=== PATIENT | male | born 1945 | race Caucasian/White ===

== ENCOUNTER → 2017-06-20 | Outpatient (CLI) | payer MEDICARE, OTHER ==
[~2017-06-20] MED LIST: ATOR40TA78 PO; CYAN10002 INJ; METO25TA35 PO; OMNIPAQUE 350 MG/ML, 150 ML BOTTLE ONE; WARF5TAB7 PO
== END | disposition home or self-care (01) ==
LOC: CFH 10:38
PROVIDERS: ATTEND Internal Medicine Cardiovascular Disease
DX: I48.92 Unspecified atrial flutter (principal); I48.91 Unspecified atrial fibrillation; J98.11 Atelectasis
CPT/HCPCS: 75572; 82565; Q9967

== ENCOUNTER 2017-06-22 06:03 | Inpatient (IN) | payer MEDICARE, OTHER ==
[2017-06-20 12:59] LABS: HEMATOCRIT 44.3 % (39.2-51.8); HEMOGLOBIN 14.6 g/dL (13.7-18.0); WHITE BLOOD COUNT 4.5 x10^3/uL (3.4-10)
[2017-06-20 13:07] VITALS: BP 147/88
[2017-06-20 13:10] LABS: ASPARTATE AMINO TRANSFERASE 40 U/L (15-37); BLOOD UREA NITROGEN 21 mg/dL (7-18)
[~2017-06-22] VITALS: Ht 190.5 cm; Wt 89.8 kg
[~2017-06-22 06:03] MED LIST changes: -OMNIPAQUE 350 MG/ML, 150 ML BOTTLE ONE
[2017-06-22] MEDS ORDERED: SODIUM CHLORIDE 0.9% 1,000 ML IV SCH (06:23)
[2017-06-22] MEDS ORDERED: SODIUM CHLORIDE 0.9% 1,000 ML IV ONE (06:30)
[2017-06-22] MEDS ORDERED: LIDOCAINE 2%, 20ML ONE (07:43)
[2017-06-22] MEDS ORDERED: ADENOSINE 6 MG/2 ML ONE (07:43)
[2017-06-22] MEDS ORDERED: HEPARIN 1,000 UNITS/ML, 10ML ONE (07:43)
[2017-06-22] MEDS ORDERED: ISOPROTERENOL 0.2MG/ML, 5ML ONE (07:43)
[2017-06-22] MEDS ORDERED: SUCCINYLCHOLINE 20 MG/ML, 10ML ONE (07:49)
[2017-06-22] MEDS ORDERED: ONDANSETRON 2MG/ML, 2ML ONE (07:49)
[2017-06-22] MEDS ORDERED: PROPOFOL 10 MG/ML, 20ML ONE (07:49)
[2017-06-22] MEDS ORDERED: DEXAMETHASONE 4 MG/ML, 1ML ONE (07:49)
[2017-06-22] MEDS ORDERED: ROCURONIUM 10 MG/ML ONE (07:49)
[2017-06-22] MEDS ORDERED: NEOSTIGMINE 1 MG/ML, 10ML ONE (07:49)
[2017-06-22] MEDS ORDERED: CEFAZOLIN 1,000 MG ONE (07:49)
[2017-06-22] MEDS ORDERED: GLYCOPYRROLATE 0.2MG/1ML ONE (07:49)
[2017-06-22] MEDS ORDERED: MIDAZOLAM 1 MG/ML, 5ML ONE (07:50)
[2017-06-22] MEDS ORDERED: FENTANYL PF 100 MCG/2ML ONE (07:50)
[2017-06-22] MEDS ORDERED: ZOLPIDEM 5MG TABLET PO PRN (09:30)
[2017-06-22] MEDS ORDERED: FENTANYL PF 100 MCG/2ML IV PRN (10:00)
[2017-06-22] MEDS ORDERED: ONDANSETRON 2MG/ML, 2ML IVPush PRN (10:00)
[2017-06-22] MEDS ORDERED: OXYcodone 5 MG/5 ML ORAL.SOL UDC PO PRN (10:00)
[2017-06-22] MEDS ORDERED: OXYcodone 5 MG/5 ML ORAL.SOL UDC ONE (10:08)
[2017-06-22] MEDS ORDERED: [UNRECOGNIZED DRUG - REMARK] MC SCH (12:00)
[2017-06-22] MEDS: SOTALOL 80MG TABLET PO SCH (18:00)
[2017-06-22] MEDS ORDERED: WARFARIN 5 MG TABLET PO-COUM SCH (18:00)
[2017-06-22] MEDS ORDERED: METOPROLOL TARTRATE 25 MG TABLET PO SCH (18:00)
[2017-06-22] MEDS ORDERED: SOTALOL 80MG TABLET PO SCH (18:00)
[2017-06-22 18:32] VITALS: BP 110/65
[2017-06-22] MEDS: ATORVASTATIN 20 MG TABLET PO SCH (21:12)
[2017-06-23 02:01] VITALS: BP 102/55
[2017-06-23] MEDS: SOTALOL 80MG TABLET PO SCH ×2 (05:19→12:02)
[2017-06-23 07:25] VITALS: BP 109/57
[2017-06-23] MEDS: CYANOCOBALAMIN 1,000 MCG TABLET PO SCH (08:45)
[2017-06-23] MEDS ORDERED: WARFARIN 5 MG TABLET PO-COUM SCH (09:00)
[2017-06-23 12:53] VITALS: BP 119/69
[2017-06-23] MEDS ORDERED: SODIUM CHLORIDE 0.9% 1,000 ML IV SCH (17:00)
[2017-06-23] MEDS ORDERED: PHYTONADIONE 10 MG/ML, 1ML SQ ONE (17:00)
[2017-06-23 20:21] VITALS: BP 118/69
[2017-06-23] MEDS: ATORVASTATIN 20 MG TABLET PO SCH (21:24)
[2017-06-24 03:04] VITALS: BP 102/58
[2017-06-24] MEDS: CYANOCOBALAMIN 1,000 MCG TABLET PO SCH (09:25)
[2017-06-24 09:44] VITALS: BP 126/77
[2017-06-24 13:29] VITALS: BP 115/71
[2017-06-24 15:20] VITALS: BP 116/73
[2017-06-24 19:48] VITALS: BP 119/71
[2017-06-24] MEDS: ATORVASTATIN 20 MG TABLET PO SCH (19:54)
[2017-06-25 01:41] VITALS: BP 101/50
[2017-06-25 08:13] VITALS: BP 118/78
[2017-06-25] MEDS ORDERED: CEFAZOLIN PMX 1GM/50ML 50 ML IVPB ONE (08:30)
[2017-06-25] MEDS: SODIUM CHLORIDE 0.9% 1,000 ML IV SCH ×2 (09:00→14:46)
[2017-06-25] MEDS: CYANOCOBALAMIN 1,000 MCG TABLET PO SCH (09:00)
[2017-06-25] MEDS ORDERED: MIDAZOLAM 1 MG/ML, 5ML ONE (11:52)
[2017-06-25] MEDS ORDERED: FENTANYL PF 100 MCG/2ML ONE (11:52)
[2017-06-25] MEDS ORDERED: CEFAZOLIN PMX 1GM/50ML 50 ML ONE (11:52)
[2017-06-25] MEDS ORDERED: LIDOCAINE 2%, 20ML ONE (11:53)
[2017-06-25] MEDS ORDERED: CEFAZOLIN 1,000 MG ONE (11:53)
[2017-06-25 12:07] VITALS: BP 138/79
[2017-06-25] MEDS ORDERED: VANCOMYCIN 500 MG ONE (12:32)
[2017-06-25] MEDS ORDERED: VANCOMYCIN PMX 1GM/200ML 200 ML ONE (12:32)
[2017-06-25] MEDS ORDERED: HYDROcodone/APAP 5/325 TABLET PO PRN (14:30)
[2017-06-25] MEDS: SOTALOL 80MG TABLET PO SCH (17:28)
[2017-06-25 20:00] VITALS: BP 121/79
[2017-06-25] MEDS: SODIUM CHLORIDE FLUSH 10ML SYR IVF SCH (21:26)
[2017-06-25] MEDS: ATORVASTATIN 20 MG TABLET PO SCH (21:26)
[2017-06-26] MEDS ORDERED: VANCOMYCIN PMX 1GM/200ML 200 ML IVPB SCH (00:30)
[2017-06-26] MEDS: SOTALOL 80MG TABLET PO SCH (05:28)
[2017-06-26 07:20] VITALS: BP 111/74
[2017-06-26] MEDS: CYANOCOBALAMIN 1,000 MCG TABLET PO SCH (08:11)
[2017-06-26] MEDS: SODIUM CHLORIDE FLUSH 10ML SYR IVF SCH (08:11)
[2017-06-26] MEDS ORDERED: SOTA80TA18 PO (08:35)
[2017-06-26] MEDS ORDERED: HYDR-3240 PO (08:52)
[2017-06-26] MEDS ORDERED: WARFARIN 5 MG TABLET PO-COUM SCH (18:00)
== END 2017-06-26 10:44 | disposition home or self-care (01) | DRG 243 ==
LOC: CACL 06:03 → ORIP 09:30 → 5SO 11:12
PROVIDERS: ADMIT Internal Medicine Cardiovascular Disease; ATTEND Internal Medicine Cardiovascular Disease
PROC: 4A0234Z Measurement of Cardiac Electrical Activity, Percutaneous Approach (ICD-10-PCS; 2017-06-22)
PROC: 4A023FZ Measurement of Cardiac Rhythm, Percutaneous Approach (ICD-10-PCS; principal; 2017-06-22 08:00)
PROC: 0JH606Z Insertion of Pacemaker, Dual Chamber into Chest Subcutaneous Tissue and Fascia, Open Approach (ICD-10-PCS; 2017-06-25)
PROC: 02H63JZ Insertion of Pacemaker Lead into Right Atrium, Percutaneous Approach (ICD-10-PCS; 2017-06-25)
PROC: 02HK3JZ Insertion of Pacemaker Lead into Right Ventricle, Percutaneous Approach (ICD-10-PCS; 2017-06-25)
DX: I48.4 Atypical atrial flutter (principal); D68.69 Other thrombophilia; I42.9 Cardiomyopathy, unspecified; E78.5 Hyperlipidemia, unspecified; Z79.01 Long term (current) use of anticoagulants; I48.91 Unspecified atrial fibrillation; Z87.891 Personal history of nicotine dependence; Z95.2 Presence of prosthetic heart valve
CPT/HCPCS: 33208; 36415; 71010; 71020; 80053; 85025; 85610; 85730; 93005; 93312; 93321; 93325; 93620; 93623; 99156; 99157; C1731; C1779; C1785; C1892; C1894; J0153; J0690; J1100; J1644; J2250; J2405; J2704; J2710; J3010; J3370; J3430; J3490; C1730; J0330; J7030